=== PATIENT | male | born 1940 | race Caucasian/White ===

== ENCOUNTER 2017-01-07 17:57 | Emergency (ER) | payer OTHER ==
[~2017-01-07] VITALS: Wt 81.0 kg
[~2017-01-07 17:57] MED LIST: AMLO-147 PO; ATEN-51 PO; BENA40TA41; FAMO20TA18 PO; FURO20TA3 PO; MECL-77 PO; METF500T4 PO; TAMS0.4C2 PO; WARF3TAB PO
--- NOTE | 2017-01-07 18:34 | ERD ---
ER Documentation Chief Complaint Date/Time DATE: 01/07/17 TIME: 18:30 Chief Complaint HERE FOR HTN. HAD HIGH READING AT HOME OF DYASTOLIC 105. NO NEURO OR KAISER HPI 76-year-old male with a history of type 2 diabetes, hypertension, atrial fibrillation, BPH presents to the emergency department stating that while at home resting today he checked his blood pressure and noticed a diastolic reading of 105 as well as increased heart rate. Patient states his heart rate typically ranges from 60-70. Patient states he is compliant on his medication which includes benazepril and atenolol metoprolol amlodipine and warfarin. Patient denies any chest pain, abdominal pain, shortness of breath, dysuria, oliguria, nausea, vomiting, diarrhea, headache, or dizziness. ROS All systems reviewed and are negative except as per history of present illness. Medications Home Meds Reported Medications Tamsulosin Hcl* (Tamsulosin Hcl*) 0.4 Mg Cap.er.24h, 0.4 MG PO DAILY, CAP 09/10/16 Furosemide* (Furosemide*) 20 Mg Tablet, 20 MG PO DAILY, #60 TAB 09/10/16 Amlodipine Besylate* (Amlodipine Besylate*) 10 Mg Tablet, 10 MG PO DAILY, #30 TAB 09/10/16 Metformin* (Glucophage*) 500 Mg Tab, 500 MG PO WITH BREAKFAST LUNCH, #30 TAB 09/10/16 Furosemide* (Furosemide*) 20 Mg Tablet, 20 MG PO DAILY, #60 TAB 09/10/16 Warfarin Sodium* (Coumadin*) 3 Mg Tablet, 3 MG PO DAILY, TAB 09/10/16 Famotidine* (Famotidine*) 20 Mg Tablet, 20 MG PO BID 03/06/13 Atenolol* (Atenolol*) 25 Mg Tablet, 25 MG PO DAILY 03/06/13 Meclizine Hcl* (Meclizine Hcl*) 25 Mg Tablet, 25 MG PO DAILY 03/06/13 Benazepril Hcl* (Benazepril Hcl*) 40 Mg Tablet 06/21/12 Allergies Allergies: Coded Allergies: No Known Drug Allergy (Verified Allergy, Unknown, 09/10/16) PMhx/Soc History of Surgery: No Anesthesia Reaction: No Hx Neurological Disorder: No Hx Respiratory Disorders: No Hx Psychiatric Problems: No Hx Alcohol Use: No Hx Substance Use: No Hx Tobacco Use: No Physical Exam Vitals Vital Signs Date Time Temp Pulse Resp B/P Pulse Ox O2 Delivery O2 Flow Rate FiO2 01/07/17 18:00 98.6 100 20 135/88 99 Physical Exam Const: Well developed, well-nourished, nontoxic appearing, well-hydrated, in no acute distress Head: Atraumatic Eyes: Normal Conjunctiva ENT: Normal External Ears, Nose and Mouth. Neck: Full range of motion..~ No meningismus. Resp: Clear to auscultation bilaterally, no wheezes, rhonchi, rales Cardio: Regular rate and rhythm, no murmurs Abd: Soft, non tender, non distended. Normal bowel sounds Skin: No petechiae or rashes Back: No midline or flank tenderness Ext: No cyanosis, or edema Neur: Awake and alert Psych: Normal Mood and Affect Procedures/MDM Upon arrival to the emergency department patient's blood pressure was noted at 135/88 with a pulse of 100. Patient was afebrile and non-hypoxic. Patient was well-appearing in no acute distress and has no complaints including abdominal pain, headache, or dizziness. Patient vital signs were rechecked in the emergency department and patient remained stable. EKG: Rate/Rhythm: Abnormal sinus rhythm with a rate of 82 bpm QRS, ST, T-waves: No changes consistent w/ acute ischemia Impression: Atrial fibrillation with a competing junctional pacemaker Patient's history and physical reveal evidence of acute atrial fibrillation with a pulse rate of 82 bpm. Patient currently taking warfarin as well as rate control therapy at home. Patient notes he does not have a pacemaker. 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 I instructed the patient to keep that appointment. At this time I have low suspicion for acute coronary syndrome, pulmonary embolism, hyperglycemia, severe acidosis or alkalosis, or pulmonary compromise. Based on patient's history of present illness and physical examination the decision was made to discharge. The patient was re-evaluated after ED treatment and stabilizing measures, and symptoms have improved. There is no evidence of life threatening injuries or illnesses at this time. On re-examination, patient resting in no distress, stable vital signs, reports feeling better and safe for discharge with outpatient follow up with PMD in 1-2 days. Patient given return precautions. ANASTASIA SHINE PA-C Jan 07, 2017 18:34
[2017-01-07 19:01] VITALS: BP 128/76; PULSE 83; RESP 16
== END 2017-01-07 19:02 | disposition home or self-care (01) ==
LOC: FTE 17:57
DX: I10 Essential (primary) hypertension (principal); E11.9 Type 2 diabetes mellitus without complications; Z79.01 Long term (current) use of anticoagulants; Z79.84 Long term (current) use of oral hypoglycemic drugs
CPT/HCPCS: 93005

== ENCOUNTER 2017-07-20 00:55 | Emergency (ER) | payer OTHER ==
[~2017-07-20] VITALS: Ht 167.6 cm; Wt 83.0 kg
[2017-07-20 01:00] VITALS: Ht 167.6 cm; Wt 83.0 kg
--- NOTE | 2017-07-20 02:03 | ERD ---
ER Documentation Chief Complaint Date/Time DATE: 07/20/17 TIME: 01:55 Chief Complaint Pt. feels that his B/P is high. Denies KAISER, CP, and dizziness. Hx: afib, htn HPI 76-year-old male presents here in emergency department for complaints of elevated blood pressure at home, it was 150/90. Patient does not have any other symptoms. Patient does not have any chest pain palpitations. Patient does not have any dizziness. Patient currently takes blood pressure medications. ROS All systems reviewed and are negative except as per history of present illness. Medications Home Meds Reported Medications Tamsulosin Hcl* (Tamsulosin Hcl*) 0.4 Mg Cap.er.24h, 0.4 MG PO DAILY, CAP 09/10/16 Furosemide* (Furosemide*) 20 Mg Tablet, 20 MG PO DAILY, #60 TAB 09/10/16 Amlodipine Besylate* (Amlodipine Besylate*) 10 Mg Tablet, 10 MG PO DAILY, #30 TAB 09/10/16 Metformin* (Glucophage*) 500 Mg Tab, 500 MG PO WITH BREAKFAST LUNCH, #30 TAB 09/10/16 Furosemide* (Furosemide*) 20 Mg Tablet, 20 MG PO DAILY, #60 TAB 09/10/16 Warfarin Sodium* (Coumadin*) 3 Mg Tablet, 3 MG PO DAILY, TAB 09/10/16 Famotidine* (Famotidine*) 20 Mg Tablet, 20 MG PO BID 03/06/13 Atenolol* (Atenolol*) 25 Mg Tablet, 25 MG PO DAILY 03/06/13 Meclizine Hcl* (Meclizine Hcl*) 25 Mg Tablet, 25 MG PO DAILY 03/06/13 Benazepril Hcl* (Benazepril Hcl*) 40 Mg Tablet 06/21/12 Allergies Allergies: Coded Allergies: No Known Drug Allergy (Verified Allergy, Unknown, 09/10/16) PMhx/Soc History of Surgery: Yes (rt inquinal hernia ) Anesthesia Reaction: No Hx Neurological Disorder: No Hx Respiratory Disorders: No Hx Cardiac Disorders: No Hx Psychiatric Problems: No Hx Miscellaneous Medical Probl: Yes (DM, HTN, AFIB) Hx Alcohol Use: No Hx Substance Use: No Hx Tobacco Use: No Smoking Status: Never smoker FmHx Family History: No coronary disease, No diabetes, No other Physical Exam Vitals Vital Signs Date Time Temp Pulse Resp B/P Pulse Ox O2 Delivery O2 Flow Rate FiO2 07/20/17 01:00 98.2 95 18 120/62 98 Physical Exam GENERAL: The patient is well developed and appropriate for usual state of health, in no apparent distress. CHEST: Clear to auscultation bilaterally. There are no rales, wheezes or rhonchi. HEART: Regular rate and rhythm. No murmurs, clicks, rubs or gallops. No S3 or S4. ABDOMEN: Soft, nontender and nondistended. Good bowel sounds. No rebound or guarding. No gross peritonitis. No gross organomegaly or masses. No Gibbs sign or McBurney point tenderness. BACK: No midline or flank tenderness. EXTREMITIES: Equal pulses bilaterally. There is no peripheral clubbing, cyanosis or edema. No focal swelling or erythema. Full range of motion. Grossly neurovascularly intact. NEURO: Alert and oriented. Cranial nerves 2-12 intact. Motor strength in all 4 extremities with 5/5 strength. Sensation grossly intact. Normal speech and gait. SKIN: There is no apparent rash or petechia. The skin is warm and dry. HEMATOLOGIC AND LYMPHATIC: There is no evidence of excessive bruising or lymphedema. No gross cervical, axillary, or inguinal lymphadenopathy. Procedures/MDM Patient's blood pressure was elevated (>120/80) but appears stable without evidence of hypertension emergency or urgency. The patient was counseled about the risks of hypertension and urged to pursue outpatient monitoring and therapy within a week with their primary care physician. Patient was advised to return to emergency department for any worsening symptoms , chest pain, palpitations, shortness breath. Otherwise, patient is advised to return to emergency department for worsening symptoms. Departure Diagnosis: Primary Impression: Hypertension Hypertension type: essential hypertension Qualified Code: I10 - Essential hypertension Condition: Stable Patient Instructions: High Blood Pressure (Hypertension) Referrals: ALBERT RILEY (PCP) Additional Instructions: do bp reading log, see PMD consecutive higher than 140/90 REGGIE LEVIN NP Jul 20, 2017 02:01
== END 2017-07-20 01:56 | disposition home or self-care (01) ==
LOC: FTE 00:55
DX: I10 Essential (primary) hypertension (principal); E11.9 Type 2 diabetes mellitus without complications; Z79.84 Long term (current) use of oral hypoglycemic drugs; Z79.01 Long term (current) use of anticoagulants
CPT/HCPCS: 93005